=== PATIENT | female | born 1960 | race African-American/Black ===

== ENCOUNTER 2016-05-01 02:27 | Emergency (ER) | payer BC ==
[~2016-05-01] VITALS: Ht 147.3 cm; Wt 70.5 kg
[2016-05-01 02:33] VITALS: Ht 147.3 cm; Wt 70.5 kg
[2016-05-01] MEDS ORDERED: SOD CHLORIDE 0.9% 1,000 ML IV STA (03:21)
[2016-05-01] MEDS ORDERED: hydrALAzine 20 MG INJ IV ONE ×2 (03:30→04:00)
[2016-05-01] MEDS ORDERED: AMIL5TAB2 PO (04:17)
--- NOTE | 2016-05-01 04:25 | ERD ---
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 She is unable to tolerate GRIS inhibitors due to dry cough, and cannot be prescribed hydrochlorothiazide due to sulfa allergy. Her primary care physician recently prescribed amiloride 5 mg , which she has been using daily. She has had no chest pain or shortness of breath, no fevers or chills, no calf or leg swelling, no headache or blurry vision. Patient has an appointment with her engineer sergeant in about 2 weeks. ROS All systems reviewed and are negative except as per history of present illness. Medications Home Meds Active Scripts Amiloride Hcl* (Amiloride Hcl*) 5 Mg Tablet, 5 MG PO DAILY, #30 TAB Prov:KIM CARCAMO MD 05/01/16 Allergies Allergies: Coded Allergies: Sulfa (Sulfonamide Antibiotics) (Unverified Allergy, Mild, HIVES, 05/01/16) PMhx/Soc Hypertension History of Surgery: Yes (D&C) Anesthesia Reaction: No Hx Neurological Disorder: No Hx Respiratory Disorders: No Hx Cardiac Disorders: Yes (HTN) Hx Psychiatric Problems: No Hx Miscellaneous Medical Probl: No Hx Alcohol Use: Yes Hx Substance Use: No Hx Tobacco Use: No Smoking Status: Never smoker FmHx Family History: No diabetes Physical Exam Vitals Vital Signs Date Time Temp Pulse Resp B/P Pulse Ox O2 Delivery O2 Flow Rate FiO2 05/01/16 02:55 92 20 171/110 99 05/01/16 02:33 98.2 100 20 154/101 97 Physical Exam GENERAL: Well-developed, well-nourished, well-hydrated, in no apparent distress , looks nontoxic in appearance HEENT: Moist mucous membranes, pink conjunctiva, no cervical spine tenderness or step-off deformities, no goiter, no jaundice or icterus, extraocular movements intact without pain. No submandibular induration, and no pharyngeal erythema NEURO: Alert and oriented 3, cranial nerves II through XII intact bilaterally, pupils equal round reactive to light, no focal deficits or facial asymmetry, sensation intact distally Strength 5/5 in upper and lower extremities bilaterally CARDIAC: Regular rate and rhythm, no murmurs rubs or gallops LUNGS: Clear bilaterally no wheezing crackles or stridor ABDOMEN: Soft nontender, no guarding, no rigidity, no rebound, no psoas sign no obturator sign. Normoactive bowel sounds SKIN: Warm and dry to touch, no abrasions, contusions, or hematomas, no lacerations, no ecchymosis, no target lesions, and without ulcers EXTREMITIES: No clubbing cyanosis or edema, calves are bilaterally symmetrical, no Homans sign, no popliteal cord sign. Distal pulses equal and bilateral PSYCH: Normal affect without agitation or irritability Result Diagram: 05/01/1640205/01/163 Results 24 hrs Laboratory Tests Test 05/01/16 04:03 Alanine Aminotransferase (ALT/SGPT) 29IU/L Albumin 4.2g/dl Albumin/Globulin Ratio 1.13 Alkaline Phosphatase 81IU/L Anion Gap 19 Aspartate Amino Transf (AST/SGOT) 24IU/L Basophils # 0.010^3/ul Basophils % 0.5% Blood Morphology Comment Blood Urea Nitrogen 12mg/dl Calcium Level 9.7mg/dl Carbon Dioxide Level 25mmol/L Chloride Level 104mmol/L Creatinine 0.69mg/dl Direct Bilirubin 0.00mg/dl Eosinophils # 0.110^3/ul Eosinophils % 1.4% Globulin 3.70g/dl Glucose Level 126mg/dl Hematocrit 46.5% Hemoglobin 15.7g/dl Indirect Bilirubin 0.2mg/dl Lipase 143U/L Lymphocytes # 2.810^3/ul Lymphocytes % 31.1% Mean Corpuscular Hemoglobin 29.9pg Mean Corpuscular Hemoglobin Concent 33.9g/dl Mean Corpuscular Volume 88.4fl Mean Platelet Volume 8.4fl Monocytes # 0.510^3/ul Monocytes % 5.9% Neutrophils # 5.510^3/ul Neutrophils % 61.1% Nucleated Red Blood Cells # 0.010^3/ul Nucleated Red Blood Cells % 0.0/100WBC Platelet Count 02045^3/UL Potassium Level 3.5mmol/L Red Blood Count 5.2610^6/ul Red Cell Distribution Width 14.9% Sodium Level 144mmol/L Total Bilirubin 0.2mg/dl Total Protein 7.9g/dl Troponin I < 0.012ng/ml White Blood Count 9.010^3/ul Current Medications Medications (Trade) Dose Ordered Sig/Ken Route PRN Reason Start Time Stop Time Status Last Admin Dose Admin Hydralazine HCl 20 mg 20 mg ONCE ONCE IV 05/01/16 03:30 05/01/16 03:54 DC Sodium Chloride (NS) 1,000 ml @ 1,000 mls/hr Q1H STAT IV 05/01/16 03:21 05/01/16 04:20 DC 05/01/16 03:53 Hydralazine HCl (Apresoline) 10 mg ONCE ONCE IV 05/01/16 04:00 05/01/16 04:01 DC 05/01/16 03:58 Procedures/MDM IV line was established patient was placed on cardiac specialist rhythm strip revealed a sinus rhythm at about 80 bpm with upright P and T waves. Patient was afebrile. EKG performed, read by me revealed a normal sinus rhythm 87 bpm, normal axis, narrow QRS complex, no concerning ST elevations or depressions noted. I administered 1 L normal saline intravenously and hydralazine 10 mg IV with good response. There is systolic and diastolic pressures fell about 20 points after medications were administered. Her CBC and electrolytes were normal, liver function tests were normal, troponin was negative. I recommend that she continue her antihypertensives although instead of just 5 mg she may need to increase the dose to 10 mg daily so I gave her a prescription for 5 mg tablets to use until she can follow-up with her PMD and engineer sergeant. Differential diagnoses considered, included but not limited to acute coronary syndrome, pulmonary embolism, aortic dissection, abdominal aortic aneurysm, sepsis, stroke, meningitis, encephalitis, pneumonia, appendicitis, cholecystitis , bowel obstruction, pyelonephritis, nephrolithiasis, cystitis, as well as metabolic, hematologic, and electrolyte abnormalities. As well as abscess, cellulitis, fractures, and dislocations. Patient feels much better at this time, and vital signs are normal, symptoms have improved. I did give strict instructions to return to the ED if symptoms continue or worsen, patient will otherwise follow-up with primary care physician. Patient understood instructions and agreed to plan. Departure Diagnosis: Primary Impression: Hypertension Hypertension type: essential hypertension Qualified Code: I10 - Essential hypertension Condition: Good Patient Instructions: High Blood Pressure (Hypertension) KIM CARCAMO MD May 01, 2016 04:25
[2016-05-01 04:27] LABS: BASOPHILS % 0.5 % (0.0-2.0); EOSINOPHILS # 0.1 10^3/ul (0.0-0.5); EOSINOPHILS % 1.4 % (0.0-7.0); HEMATOCRIT 46.5 % (37.0-47.0); HEMOGLOBIN 15.7 g/dl (12.0-16.0); LYMPHOCYTES # 2.8 10^3/ul (0.8-2.9); LYMPHOCYTES % 31.1 % (15.0-51.0); MEAN CORPUSCULAR HEMOGLOBIN 29.9 pg (29.0-33.0); MEAN CORPUSCULAR HGB CONC 33.9 g/dl (32.0-37.0); MEAN CORPUSCULAR VOLUME 88.4 fl (82.0-101.0); MEAN PLATELET VOLUME 8.4 fl (7.4-10.4); MONOCYTE # 0.5 10^3/ul (0.3-0.9); MONOCYTES % 5.9 % (0.0-11.0); NEUTROPHIL # 5.5 10^3/ul (1.6-7.5); NEUTROPHILS % 61.1 % (39.0-77.0); PLATELET COUNT 289 10^3/UL (140-440); RED BLOOD COUNT 5.26 10^6/ul (4.20-5.40); RED CELL DISTRIBUTION WIDTH 14.9 % (11.5-14.5)
[2016-05-01 04:28] LABS: CONDITION 1; LH ANALYZER COMMENTS 1
[2016-05-01 04:45] LABS: ALBUMIN 4.2 g/dl (3.3-4.9); CHLORIDE 104 mmol/L (97-110)
[2016-05-01 04:46] LABS: POTASSIUM 3.5 mmol/L (3.5-5.1); SODIUM 144 mmol/L (135-144)
[2016-05-01 04:48] LABS: ALANINE AMINOTRANSFERASE 29 IU/L (13-69); ALBUMIN/GLOBULIN RATIO 1.13; ALKALINE PHOSPHATASE 81 IU/L (42-121); ANION GAP 19 (8-16); ASPARTATE AMINO TRANSFERASE 24 IU/L (15-46); BILIRUBIN,INDIRECT 0.2 mg/dl (0-1.1); BILIRUBIN,TOTAL 0.2 mg/dl (0.2-1.3); BLOOD UREA NITROGEN 12 mg/dl (7-20); CARBON DIOXIDE 25 mmol/L (21-31); CREATININE 0.69 mg/dl (0.44-1.00); GLUCOSE 126 mg/dl (70-220); TOTAL PROTEIN 7.9 g/dl (6.1-8.1)
[2016-05-01 04:49] LABS: CALCIUM 9.7 mg/dl (8.4-10.2)
[2016-05-01 05:14] LABS: TROPONIN-I < 0.012 ng/ml (0.00-0.12)
[2016-05-01 05:33] VITALS: BP 120/75; PULSE 90; RESP 20; TEMP 98
== END 2016-05-01 05:33 | disposition home or self-care (01) ==
LOC: E/R 02:27
DX: I10 Essential (primary) hypertension (principal)
CPT/HCPCS: 36415; 80053; 83690; 84484; 85025; 93005; 96374; 99284; J0360; J7030

== ENCOUNTER → 2016-06-27 | Outpatient (CLI) | payer BC ==
[~2016-06-27] MED LIST: AMIL5TAB2 PO
--- NOTE | 2016-06-27 15:00 | RADRPT ---
PROCEDURE: US Pelvis. CLINICAL INDICATION: Pelvic pain. TECHNIQUE: The pelvis was evaluated with transabdominal and transvaginal sonography in the axial a nd sagittal planes. COMPARISON: No prior study is available for comparison. FINDINGS: The uterus is enlarged measuring 9.4 x 6.5 x 6.4 cm. Endometrial thickness is 3.3 mm. There is a po sterior myometrial heterogeneous mass consistent with a fibroid measuring 5.3 x 4.5 x 5.4 cm. The o varies are not visualized. There is no other pelvic mass or free fluid. IMPRESSION: 1. Enlarged uterus. 2. Normal endometrium. 3. Posterior fibroid measuring 5.3 x 4.5 x 5.4 cm. 4. Ovaries not visualized. 5. Otherwise unremarkable pelvic ultrasound. RPTAT: QQ .Luis Alberto Amin MD, Date Time Electronically viewed and signed by .Luis Alberto Amin MD, on 06/27/2016 15:00 .R/
== END | disposition home or self-care (01) ==
LOC: RAD 04:32
PROVIDERS: ATTEND Obstetrics & Gynecology
DX: R10.2 Pelvic and perineal pain (principal); N85.2 Hypertrophy of uterus
CPT/HCPCS: 76830; 76856

== ENCOUNTER → 2016-07-04 | Outpatient (CLI) | payer BC ==
[~2016-07-04] MED LIST changes: +REGADENOSON 0.4 MG/5 ML SYG ONE
--- NOTE | 2016-07-04 13:12 | RADRPT ---
PROCEDURE: Lexiscan myocardial perfusion study CLINICAL INDICATION: 55 -year-old patient complaining of chest pain. TECHNIQUE: Lexiscan 0.4 mg intravenously separate acquisition gated myocardial perfusion SPECT usi ng Tc 99m Myoview 31.5 mCi intravenously at stress and Tc-99m Myoview, 10.6 mCi intravenously at res t was performed using the rest/stress sequence. Poststress Myoview SPECT images were obtained in th e supine position. COMPARISON: No prior studies. FINDINGS: Perfusion images reveal no evidence of perfusion defects. Lexiscan post stress gated SPECT images demonstrate no wall motion abnormalities. IMPRESSION: 1. No evidence of perfusion defects. 2. No wall motion abnormalities. 3. The left ventricle ejection fraction at stress is 64%. A call report was made to Dr. Turner at 01:10 p.m. on July 04, 2016. RPTAT: HH .Elsy Marte MD, Date Time Electronically viewed and signed by .Elsy Marte MD, MD on 07/04/2016 13:12 .L/
--- NOTE | 2016-07-04 17:53 | RADRPT ---
Echocardiogram Report Patient Name: SUSY EPPERSON Gender: Female Date: 1960 Study Date: 04-Jul-2016 [employer] Operator: Yair Collins RDCS Location: EKG Ref. Physician: MARGARITA TURNER Quality: Good Procedures: Transthoracic echocardiogram with complete 2D, M-Mode, and doppler examination. Indications: Chest Pain. 2D/M Mode Doppler Measurement Value Normal Ranges Measurement Value Normal Ranges LVIDd 2D 3.9 3.5 - 5.6 cm AV Peak Luis 1.1 m/sec LVIDs 2D 2.1 2.1 - 4.1 cm AV Peak PG 4.6 mmHg LVPWd 2D 0.9 0.6 - 1.1 cm LVOT Peak Luis 1.1 m/sec IVSd 2D 0.8 0.6 - 1.1 cm LVOT Peak PG 4.7 mmHg AoR Diam 2D 3.0 2.0 - 3.7 cm MV E Peak Luis 0.7 m/sec EDV 2D 66.2 cm3 MV A Peak Luis 0.7 m/sec ESV 2D 8.8 cm3 MV E/A 0.9 LA Dimen 2D 2.9 2.3 - 4.0 cm MV Decel Time [address] [place] 3 MV E/A 0.9 Findings Left Ventricle: Normal left ventricular systolic function. Normal left ventricular cavity size. Normal left ventricular wall thickness. Ejection fraction is visually estimated at 60 %. Tissue Doppler/Mitral Doppler indices are consistent with impaired relaxation (Stage I diastolic dysfunction). Right Ventricle: Normal right ventricular size. Normal right ventricular systolic function. Left Atrium: The left atrium is normal in size. Right Atrium: The right atrium is normal in size. Mitral Valve: Mitral valve leaflets appear mildly thickened. Mild mitral annular calcification. Trace mitral regurgitation. Aortic Valve: Normal appearance of the aortic valve. No significant aortic stenosis or insufficiency. Tricuspid Valve: Normal appearance of the tricuspid valve. Unable to obtain RVSP due to minimal presence of tricuspid regurgitation. Pulmonic Valve: Normal pulmonic valve appearance. Pericardium: Normal pericardium with no significant pericardial effusion. Aorta: Normal aortic root. IVC: Normal size and normal respiratory collapse consistent with normal right atrial pressure. Conclusions 1.Normal left ventricular systolic function. Normal left ventricular cavity size. Normal left ventricular wall thickness. Ejection fraction is visually estimated at 60 %. Tissue Doppler/Mitral Doppler indices are consistent with impaired relaxation (Stage I diastolic dysfunction). 2.Mitral valve leaflets appear mildly thickened. Mild mitral annular calcification. Trace mitral regurgitation. 3.Normal appearance of the tricuspid valve. Unable to obtain RVSP due to minimal presence of tricuspid regurgitation. Electronically Signed By: Margarita Turner 04-Jul-2016 17:52:13 -0700 Patient Name: SUSY EPPERSON Study Date: 04-Jul-2016 [id number]
--- NOTE | 2016-07-04 19:20 | CARRPT ---
DATE OF PROCEDURE: 07/04/2016 LEXISCAN CARDIOLITE STRESS TEST, ELECTROCARDIOGRAM PORTION REASON FOR STRESS TESTING: Chest pain, assess for ischemia. BASELINE VITAL SIGNS AND ELECTROCARDIOGRAM: Pulse of 67, blood pressure 139/99. Electrocardiogram reveals normal sinus rhythm, rate of 67, normal axis, normal intervals, with a sinus arrhythmia and inferolateral biphasic T-wave abnormalities. PROCEDURE: The patient underwent standard Lexiscan infusion protocol over 10 seconds, followed by a radiolabeled tracer. The patient's test was stopped due to completion of protocol. Maximal achiev ed blood pressure during the test 139/94. Maximum heart rate during the test 85. ELECTROCARDIOGRAM FINDINGS: During Lexiscan infusion, the patient developed T-wave flattening, whic h returned to normal during recovery. No documented PVCs. SYMPTOMS: The patient had complaints of slight chest pain during stress test that resolved during r ecovery. IMPRESSION 1. No Lexiscan-induced ST or T-wave changes from baseline abnormalities or diagnostic cardiac ische serina. 2. Complaints of chest pain during stress testing resolved during recovery. 3. No documented premature ventricular contractions during stress testing. 4. Report of nuclear images to follow in separate dictation. Dictated By: MARGARITA SMITH/GRETEL Conf#: [id number] DID#: [id number]
== END | disposition home or self-care (01) ==
LOC: NUC 08:17
PROVIDERS: ATTEND Internal Medicine
DX: R07.9 Chest pain, unspecified (principal); R00.2 Palpitations; R42 Dizziness and giddiness
CPT/HCPCS: 78452; 93017; 93306; A9500; A9505; J2785

== ENCOUNTER → 2016-11-05 | Outpatient (CLI) | payer BC ==
[~2016-11-05] MED LIST changes: -REGADENOSON 0.4 MG/5 ML SYG ONE
--- NOTE | 2016-11-05 14:39 | RADRPT ---
Vent Rate: 73 bpm RR Interval: 0 msec AL Interval: 156 msec QRS Duration: 76 msec QT Interval: 400 msec QTC Interval: 440 msec P-R-T [place]: 60 - 34 - 59 degrees Normal sinus rhythm Normal ECG Electronically Signed By: Nitin Chatman [id number]
--- NOTE | 2016-11-05 22:36 | RADRPT ---
PROCEDURE: XR Chest. CLINICAL INDICATION: Preoperative. Left breast cancer. TECHNIQUE: Single frontal view. COMPARISON: None. FINDINGS: The lungs are clear. The heart size is normal. There is no pleural effusion. There is no pneumothorax. IMPRESSION: 1. Normal chest radiograph. RPTAT: QQ .Luis Alberto Amin MD, MD Date Time Electronically viewed and signed by .Luis Alberto Amin MD, on 11/05/2016 22:36 .R/
== END | disposition home or self-care (01) ==
LOC: RAD 11:50
PROVIDERS: ATTEND Obstetrics & Gynecology
DX: Z01.818 Encounter for other preprocedural examination (principal); C50.912 Malignant neoplasm of unspecified site of left female breast
CPT/HCPCS: 71010; 93005

== ENCOUNTER → 2017-04-30 | Outpatient (CLI) | END | disposition home or self-care (01) ==

== ENCOUNTER 2017-10-28 12:02 | Emergency (ER) | END 2017-10-28 15:30 | disposition home or self-care (01) ==

== ENCOUNTER 2017-11-08 09:05 | Emergency (ER) | END 2017-11-08 11:50 | disposition home or self-care (01) ==

== ENCOUNTER → 2017-12-12 | Outpatient (CLI) | END | disposition home or self-care (01) ==